=== PATIENT | female | born 1990 | race Caucasian/White ===

== ENCOUNTER 2017-03-18 02:05 | Emergency (ER) | payer OTHER ==
[2017-03-18] MEDS ORDERED: SODIUM CHLORIDE 0.9% 500 ML IV STA (02:41)
--- NOTE | 2017-03-18 03:16 | ED ---
Arrhythmia/Palpitations HPI - General Chief Complaint: Arrhythmia/Palpitations Stated Complaint: Palpitations Time Seen by Provider: 03/18/17 02:22 Source: patient Mode of arrival: ambulatory Limitations: no limitations - History of Present Illness Initial Comments: This patient is a 26-year-old woman who presents to be evaluated for which she describes as palpitations. She states it feels like her heart will have an extra beat and it will be associated with a squeezing feeling in her chest that comes and goes over about a second. Patient states that this came on nearly 2 hours ago now, while she was at a friend's house. She states that when she went home and called her mother she was advised to be seen in the emergency department. Patient is not having any other symptoms, including no dyspnea, diaphoresis, nausea or vomiting, lightheadedness or syncope. The patient had a similar episode approximately one month ago and was seen at [facility]. She states that she was discharged to follow-up but her insurance changed so she was not able to keep the follow-up appointment. MD Complaint: palpitations Onset/Timin -: hour(s) Context: occurred during rest Associated Symptoms: anxiety - Related Data Home Medications Medication Instructions Recorded Confirmed No Known Home Medications [No 03/18/17 03/18/17 Known Home Medications] Allergies Allergy/AdvReac Type Severity Reaction Status Date / Time Penicillins Allergy Unknown Verified 03/18/17 02:19 Childhood Review of Systems ROS Statement: Those systems with pertinent positive or pertinent negative responses have been documented in the HPI. ROS Other: All systems not noted in ROS Statement are negative. Constitutional: Denies: fever, chills, weakness Eyes: Denies: vision change Respiratory: Denies: cough, dyspnea Cardiovascular: Reports: palpitations. Denies: chest pain, dyspnea on exertion , orthopnea, syncope Gastrointestinal: Denies: abdominal pain, vomiting, diarrhea Musculoskeletal: Denies: back pain Skin: Denies: rash Neurological: Denies: headache, weakness, numbness Psychiatric: Reports: anxiety Past Medical History Additional Past Medical History / Comment(s): hx of heart block, unsure of which History of Any Multi-Drug Resistant Organisms: None Reported Additional Past Surgical History / Comment(s): wisdom teeth 2007 Past Psychological History: Anxiety Smoking Status: Current every day smoker Past Alcohol Use History: Occasional Past Drug Use History: None Reported General Exam Limitations: no limitations General appearance: alert, in no apparent distress Head exam: Present: atraumatic, normocephalic Eye exam: Present: normal appearance. Absent: scleral icterus, conjunctival injection ENT exam: Present: normal oropharynx Neck exam: Present: normal inspection, full ROM Respiratory exam: Present: normal lung sounds bilaterally. Absent: respiratory distress, wheezes, rales, rhonchi, stridor Cardiovascular Exam: Present: regular rate, normal rhythm, normal heart sounds. Absent: systolic murmur, diastolic murmur, rubs, gallop GI/Abdominal exam: Present: soft. Absent: tenderness, guarding, rebound, mass Extremities exam: Present: normal inspection, normal capillary refill. Absent: pedal edema, calf tenderness Neurological exam: Present: alert Psychiatric exam: Present: anxious Skin exam: Present: warm, dry, intact, normal color. Absent: rash Course Vital Signs 03/18/17 03/18/17 02:13 04:02 Temperature 97.7 F 97.5 F L Pulse Rate 80 66 Respiratory 16 18 Rate Blood Pressure 127/75 107/69 O2 Sat by Pulse 99 97 Oximetry Medical Decision Making - Lab Data Result diagrams: 03/18/17 03:00 03/18/17 03:00 Lab Results 03/18/17 03/18/17 03/18/17 Range/Units 03:00 03:00 03:00 WBC 8.0 (3.8-10.6) k/uL RBC 4.47 (3.80-5.40) m/uL Hgb 14.2 (11.4-16.0) gm/dL Hct 40.7 (34.0-46.0) % MCV 91.0 (80.0-100.0) fL MCH 31.7 (25.0-35.0) pg MCHC 34.9 (31.0-37.0) g/dL RDW 12.7 (11.5-15.5) % Plt Count 239 (150-450) k/uL Neutrophils % 59 % Lymphocytes % 30 % Monocytes % 6 % Eosinophils % 3 % Basophils % 1 % Neutrophils # 4.7 (1.3-7.7) k/uL Lymphocytes # 2.4 (1.0-4.8) k/uL Monocytes # 0.5 (0-1.0) k/uL Eosinophils # 0.2 (0-0.7) k/uL Basophils # 0.1 (0-0.2) k/uL PT 10.5 (9.0-12.0) sec INR 1.0 (<1.1) APTT 28.1 (22.0-30.0) sec D-Dimer 0.19 (<0.60) mg/L FEU Sodium 140 (137-145) mmol/L Potassium 3.8 (3.5-5.1) mmol/L Chloride 104 (98-107) mmol/L Carbon Dioxide 25 (22-30) mmol/L Anion Gap 11 mmol/L BUN 9 (7-17) mg/dL Creatinine 0.70 (0.52-1.04) mg/dL Est GFR (MDRD) Af Amer >60 (>60 ml/min/1.73 sqM) Est GFR (MDRD) Non-Af >60 (>60 ml/min/1.73 sqM) Glucose 95 (74-99) mg/dL Calcium 9.8 (8.4-10.2) mg/dL Magnesium 1.8 (1.6-2.3) mg/dL Total Bilirubin 0.4 (0.2-1.3) mg/dL AST 16 (14-36) U/L ALT 25 (9-52) U/L Alkaline Phosphatase 61 (38-126) U/L Troponin I (0.000-0.034) ng/mL Total Protein 7.5 (6.3-8.2) g/dL Albumin 4.4 (3.5-5.0) g/dL 03/18/17 Range/Units 03:00 WBC (3.8-10.6) k/uL RBC (3.80-5.40) m/uL Hgb (11.4-16.0) gm/dL Hct (34.0-46.0) % MCV (80.0-100.0) fL MCH (25.0-35.0) pg MCHC (31.0-37.0) g/dL RDW (11.5-15.5) % Plt Count (150-450) k/uL Neutrophils % % Lymphocytes % % Monocytes % % Eosinophils % % Basophils % % Neutrophils # (1.3-7.7) k/uL Lymphocytes # (1.0-4.8) k/uL Monocytes # (0-1.0) k/uL Eosinophils # (0-0.7) k/uL Basophils # (0-0.2) k/uL PT (9.0-12.0) sec INR (<1.1) APTT (22.0-30.0) sec D-Dimer (<0.60) mg/L FEU Sodium (137-145) mmol/L Potassium (3.5-5.1) mmol/L Chloride (98-107) mmol/L Carbon Dioxide (22-30) mmol/L Anion Gap mmol/L BUN (7-17) mg/dL Creatinine (0.52-1.04) mg/dL Est GFR (MDRD) Af Amer (>60 ml/min/1.73 sqM) Est GFR (MDRD) Non-Af (>60 ml/min/1.73 sqM) Glucose (74-99) mg/dL Calcium (8.4-10.2) mg/dL Magnesium (1.6-2.3) mg/dL Total Bilirubin (0.2-1.3) mg/dL AST (14-36) U/L ALT (9-52) U/L Alkaline Phosphatase (38-126) U/L Troponin I <0.012 (0.000-0.034) ng/mL Total Protein (6.3-8.2) g/dL Albumin (3.5-5.0) g/dL Disposition Clinical Impression: Palpitations Disposition: HOME SELF-CARE Condition: Good Instructions: Palpitations (ED) Referrals: None,Stated [Primary Care Provider] - 1-2 days Alex Monroy DO [STAFF PHYSICIAN] - 1-2 days Romulo Dow MD [STAFF PHYSICIAN] - 1-2 days
[2017-03-18 03:29] LABS: Basophils # (A) 0.1 k/uL (0-0.2); Basophils % (A) 1 %; CH 32.1; CHCM 35.4; Eosinophils # (A) 0.2 k/uL (0-0.7); Eosinophils % (A) 3 %; HCT 40.7 % (34.0-46.0); HDW 2.45; HGB 14.2 gm/dL (11.4-16.0); Luc # (Auto) 0.14; Luc % (Auto) 2; Lymphocytes # (A) 2.4 k/uL (1.0-4.8); Lymphocytes % (A) 30 %; MCH 31.7 pg (25.0-35.0); MCHC 34.9 g/dL (31.0-37.0); Mean Platelet Volume 7.5; Monocytes # (A) 0.5 k/uL (0-1.0); Monocytes % (A) 6 %; Neutrophils # (A) 4.7 k/uL (1.3-7.7); Neutrophils % (A) 59 %; RBC 4.47 m/uL (3.80-5.40); RDW 12.7 % (11.5-15.5); WBC (Perox) 7.65
[2017-03-18 03:45] LABS: Partial Thromboplastin Time 28.1 sec (22.0-30.0); Prothrombin Time 10.5 sec (9.0-12.0)
[2017-03-18 03:47] LABS: ALT 25 U/L (9-52); AST 16 U/L (14-36); Alkaline Phosphatase 61 U/L (38-126); Anion Gap 11 mmol/L; Blood Urea Nitrogen 9 mg/dL (7-17); Calcium 9.8 mg/dL (8.4-10.2); Carbon Dioxide 25 mmol/L (22-30); Chloride 104 mmol/L (98-107); Glucose 95 mg/dL (74-99); Magnesium 1.8 mg/dL (1.6-2.3); Non-African American GFR(MDRD) >60 (>60 ml/min/1.73 sqM); Potassium 3.8 mmol/L (3.5-5.1); Sodium 140 mmol/L (137-145); Total Bilirubin 0.4 mg/dL (0.2-1.3); Total Protein 7.5 g/dL (6.3-8.2)
--- NOTE | 2017-03-18 03:49 | XR ---
EXAM: XR Chest, 1 View CLINICAL HISTORY: Reason: dysrhythmia TECHNIQUE: Frontal view of the chest. COMPARISON: No relevant prior studies available. FINDINGS: Lungs: Unremarkable. No consolidation. Pleural space: No pleural effusion. No pneumothorax. Heart: Unremarkable. No cardiomegaly. Mediastinum: Unremarkable. IMPRESSION: No acute cardiopulmonary disease.
[2017-03-18 04:03] VITALS: BP 107/69; PULSE 66; RESP 18; TEMP 97.5
== END 2017-03-18 04:37 | disposition home or self-care (01) ==
LOC: EC 02:05
DX: R00.2 Palpitations (principal); F41.9 Anxiety disorder, unspecified; F17.200 Nicotine dependence, unspecified, uncomplicated; Z88.0 Allergy status to penicillin; Z86.79 Personal history of other diseases of the circulatory system
CPT/HCPCS: 36415; 71010; 80053; 83735; 84484; 85025; 85379; 85610; 85730; 93005; 96360; 96361; 99285

== ENCOUNTER → 2020-12-26 | Outpatient (CLI) | payer BC ==
--- NOTE | 2020-12-27 08:57 | US ---
EXAMINATION TYPE: US thyroid st tissue head/neck DATE OF EXAM: 12/26/2020 COMPARISON: NONE CLINICAL HISTORY: E07.89 Thyroid fullness. Pt states physician felt neck was enlarged GLAND SIZE: Right Lobe: 5.5 x 1.4 x 1.7 cm Overall Parenchyma: homogenous Left Lobe: 4.8 x 1.0 x 1.4 cm Overall Parenchyma: homogeneous Isthmus Thickness: 0.4 cm Bilateral neck scanned, no evidence of lymphadenopathy. Bilateral thyroid appeared wnl. IMPRESSION: Normal thyroid ultrasound
== END | disposition home or self-care (01) ==
LOC: RADUSWWP 16:08
PROVIDERS: ATTEND Obstetrics & Gynecology Obstetrics
DX: E07.89 Other specified disorders of thyroid (principal)
CPT/HCPCS: 76536

== ENCOUNTER → 2022-07-17 | Outpatient (CLI) | payer BC ==
[2022-07-17 10:11] VITALS: BP 118/79; PULSE 93; RESP 16; TEMP 98.3
--- NOTE | 2022-07-17 10:54 | P.HPOB ---
History of Present Illness H&P Date: 07/17/22 Chief Complaint: The patient is here for her routine gynecologic exam. This is a 32-year-old G0 with an LMP of 04/30/22. The patient is here to establish with this office. She has been on semi-continuous oral contraception for almost 1 year. She states she is doing well with this. She has menstrual period about every 3 months using this method. She is without gynecologic complaints. She is contemplating attempting in approximately 2 years. It has been about 1 year since her last pelvic exam. Review of Systems The patient's weight has been stable over the last year. Her weight can fluctuate by about 10-15 pounds since she has been trying to lose weight. She denies respiratory, cardiac, or G.I. problems. 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 She has completed her Gardasil vaccination series. History of Any Multi-Drug Resistant Organisms: None Reported Additional Past Surgical History / Comment(s): wisdom teeth 2007. Root canal. Past Psychological History: Anxiety (She denies any current depression.) Past Alcohol Use History: Occasional (5 per week) Additional Past Alcohol Use History / Comment(s): Quit smoking in 2018. Past Drug Use History: None Reported Additional History: She has been with her boyfriend since 2015 and lives with him. She works in sales for [employer]. - Past Family History Mother Additional Family Medical History / Comment(s): Anxiety. Maternal grandfather had CVA and DC. Maternal grandmother had brain cancer. Father Family Medical History: Hyperlipidemia, Hypertension Additional Family Medical History / Comment(s): Paternal grandfather had diabetes and paternal grandmother had renal failure. Medications and Allergies Home Medications Medication Instructions Recorded Confirmed Type ALPRAZolam [Xanax] 0.5 mg PO DAILY PRN 07/17/22 07/17/22 History Dextroamphetamine/Amphetamine 5 mg PO QAM 07/17/22 07/17/22 History [Adderall Xr] Levonorgestrel/Ethin.estradiol 1 tab PO DAILY 07/17/22 07/17/22 History [Levonorgestrel/Ethin.estradiol Triphasic] Allergies Allergy/AdvReac Type Severity Reaction Status Date / Time Penicillins Allergy Unknown Verified 07/17/22 10:07 Childhood Exam Vital Signs Temp Pulse Resp BP Pulse Ox 07/17/22 10:07 98.3 F 93 16 118/79 100 Intake and Output 07/16/22 07/17/22 07/17/22 22:59 06:59 14:59 Other: Weight 73.482 kg Height 5 feet 2-1/2 inches, weight 162 pounds, BMI 29.2. This is a well-developed well-nourished white female who is alert and oriented times 3 in no acute distress. HEENT: Within normal limits. NECK: Supple without mass or thyromegaly. CHEST AND LUNGS: Clear to auscultation. HEART: Regular rate and rhythm. BREASTS: Are without mass or discharge. AXILLARY EXAM: Negative for adenopathy. BACK: Negative for CVA tenderness. ABDOMEN: Soft, nontender, without palpable masses. PELVIC EXAM: Normal external genitalia. Cervix and vagina appear normal. There is no unusual discharge. There is no evidence of prolapse. The uterus is midposition, nongravid size and nontender. There are no palpable adnexal masses or tenderness. RECTAL EXAM: negative for mass or tenderness. EXTREMITIES: Nontender. IMPRESSION: 1. 32-year-old female on oral contraception, with normal gynecologic exam. PLAN: 1. Pap smear cotest was performed. 2. Self breast awareness was discussed with the patient. We have also discussed symptoms associated with inflammatory breast cancer. 3. We have had a long discussion regarding for contraception. We discussed possible side effects and risks. We have discussed the possible increased risk for blood clots including DVT, PE, DC, and CVA. We have discussed how smoking increases those risks. She would like to continue oral contraception. The electronic prescription will be sent to [facility] pharmacy on and . 4. Preconception planning was discussed with the patient. I have recommended that she take a multivitamin with folic acid on a regular basis, especially when she discontinues the control pills. 5. Weight control was discussed with the patient. She states she has been trying to lose weight. I have stressed the importance of good nutrition and regular exercise as well as adequate fiber and regular meals. 6. She has had her Covid vaccination series. 7. She was advised to return in one year for her annual well woman exam.
--- NOTE | 2022-07-24 18:03 | P.PN ---
Progress Note - Text Progress Note Date: 07/24/22 OUTPATIENT FOLLOW-UP NOTE TEST(S)/RESULTS: Test results from 07/17/2022 include negative Pap smear and negative high-risk HPV testing. METHOD OF NOTIFICATION: The patient was notified by phone. PATIENT COMMENTS: She is happy to hear these results. DIAGNOSIS: Negative Pap smear cotest. DISCUSSION: [] PLAN: She was advised to return in one year for her annual well woman exam.
== END | disposition home or self-care (01) ==
LOC: WWCWWP 09:50
PROVIDERS: ATTEND Obstetrics & Gynecology
DX: Z53.9 Procedure and treatment not carried out, unspecified reason (principal)

== ENCOUNTER → 2022-11-13 | Outpatient (CLI) | payer BC | END | disposition home or self-care (01) | LOC: LABWHC1 15:52 | PROVIDERS: ATTEND Family Medicine | DX: B89 Unspecified parasitic disease (principal) | CPT/HCPCS: 87502 ==

== ENCOUNTER → 2023-11-26 | Outpatient (CLI) | payer BC ==
[2023-11-26 14:12] VITALS: BP 141/83; PULSE 104; RESP 18; TEMP 98.3
--- NOTE | 2023-11-26 14:40 | P.HPOB ---
History of Present Illness H&P Date: 11/26/23 Chief Complaint: The patient is here for her routine gynecologic exam. This is a 33-year-old G0 with an LMP of 10/12/2023. The patient continues to use semi-continuous oral contraception and has been on this since 2020. She thinks she may be interested in getting in about 2 years. She denies any problems with oral contraception. She is without gynecologic complaints. Review of Systems The patient's weight has been stable over the last year. She denies respiratory, cardiac, or G.I. problems. 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 She has completed her Gardasil vaccination series. History of Any Multi-Drug Resistant Organisms: None Reported Additional Past Surgical History / Comment(s): wisdom teeth 2007. Root canal. Past Psychological History: Anxiety Smoking Status: Light tobacco smoker (Rare use, only during very stressful times.), Second hand smoke exposure (Boyfriend smokes.) Past Alcohol Use History: Occasional (2-3 drinks per week.) Additional Past Alcohol Use History / Comment(s): Quit smoking in 2018. Past Drug Use History: None Reported Additional History: She has been with her boyfriend since 2014 and lives with him. 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 - Past Family History Mother Additional Family Medical History / Comment(s): Anxiety. Maternal grandfather had CVA and NM. Maternal grandmother had brain cancer. Father Family Medical History: Hyperlipidemia, Hypertension Additional Family Medical History / Comment(s): Paternal grandfather had diabet es and paternal grandmother had renal failure. Medications and Allergies Home Medications Medication Instructions Recorded Confirmed Type ALPRAZolam [Xanax] 0.5 mg PO DAILY PRN 07/17/22 11/26/23 History Dextroamphetamine/Amphetamine 5 mg PO QAM 07/17/22 11/26/23 History [Adderall Xr] l-Norgest/E.estradiol-E.estrad 1 tab PO DAILY #84 tab 07/17/22 11/26/23 Rx [Loseasonique Tablet] Allergies Allergy/AdvReac Type Severity Reaction Status Date / Time Penicillins Allergy Unknown Verified 11/26/23 14:05 Childhood Exam Vital Signs Temp Pulse Resp BP Pulse Ox 11/26/23 14:06 98.3 F 104 H 18 141/83 98 Intake and Output 11/25/23 11/26/23 11/26/23 22:59 06:59 14:59 Other: Weight 73.936 kg Height 5 feet 2 inches, weight 163 pounds, BMI 29.8. Repeat blood pressure in the right arm was 108/58. This is a well-developed well-nourished white female who is alert and oriented times 3 in no acute distress. HEENT: Within normal limits. NECK: Supple without mass or thyromegaly. CHEST AND LUNGS: Clear to auscultation. HEART: Regular rate and rhythm. BREASTS: Are without mass or discharge. AXILLARY EXAM: Negative for adenopathy. BACK: Negative for CVA tenderness. ABDOMEN: Soft, nontender, without palpable masses. PELVIC EXAM: Normal external genitalia. Cervix and vagina appear normal. There is no unusual discharge. There is no evidence of prolapse. The uterus is midposition, nongravid size and nontender. There are no palpable adnexal masses or tenderness. RECTAL EXAM: Deferred. EXTREMITIES: Nontender. IMPRESSION: 1. 33-year-old female doing well on some a continuous oral contraception, contemplating attending and about 2 years. 2. Normal gynecologic exam. PLAN: 1. Pap smear was deferred since she had a negative Pap smear cotest on 07/17/2022. 2. Self breast awareness was discussed with the patient. We have also discussed symptoms associated with inflammatory breast cancer. 3. Preconception planning was discussed. I recommended taking a daily multivitamin with folic acid. I also recommended keeping a menstrual calendar. 4. I recommended checking her own blood pressure intermittently. She was instructed to call if it is consistently high. 5. We have discussed the gradually increasing risk for chromosomal defects such as Down syndrome with increasing maternal age. 6. The prescription for her oral contraception for the generic form of [place] sonique will be sent electronically to [facility] pharmacy on and [place]. 7. She was advised to return in one year for her annual well woman exam.
== END ==
LOC: WWCWWP 13:54
PROVIDERS: ATTEND Obstetrics & Gynecology
DX: F41.9 Anxiety disorder, unspecified (principal); F17.200 Nicotine dependence, unspecified, uncomplicated; Z79.3 Long term (current) use of hormonal contraceptives; Z88.0 Allergy status to penicillin

== ENCOUNTER → 2024-01-21 | Outpatient (CLI) | payer BC ==
[2024-01-22 01:19] LABS: Alternaria alternata IgE <0.10 kU/L; Aspergillus fumagatus IgE <0.10 kU/L; Birch IgE <0.10 kU/L; Cat Epith & Dander IgE <0.10 kU/L; Cladosporian herbarum IgE <0.10 kU/L; Cockroach IgE <0.10 kU/L; Dermato. farinae IgE <0.10 kU/L; Dog Dander IgE <0.10 kU/L; Maple (Box Elder) IgE <0.10 kU/L; Oak IgE <0.10 kU/L; Ragweed,Common IgE <0.10 kU/L
[2024-01-22 13:11] LABS: Aureo. pullulans IgE <0.10 kU/L (<0.10); Aureo. pullulans IgE Class CLASS 0; Johnson Grass IgE Class CLASS 0; Latex IgE Class CLASS 0; Rhizopus nigricans IgE <0.10 kU/L (<0.10); Rhizopus nigricans IgE Class CLASS 0; Timothy Grass IgE <0.10 kU/L (<0.10); Timothy Grass IgE Class CLASS 0
[2024-01-22 13:12] LABS: Epicoccum purpurascens Class CLASS 0; Epicoccum purpurascens IgE <0.10 kU/L (<0.10); Mucor racemosus IgE <0.10 kU/L (<0.10); Mucor racemosus IgE Class CLASS 0
[2024-01-22 13:13] LABS: Candida albicans IgE Class CLASS 0; Cottonwood IgE <0.10 kU/L (<0.10); S.rostrata/Helminth Class CLASS 0; S.rostrata/Helminth IgE <0.10 kU/L (<0.10); Sycamore(Mpl.Lf) IgE <0.10 kU/L (<0.10); Sycamore(Mpl.Lf) IgE Class CLASS 0
[2024-01-22 13:14] LABS: Walnut Tree IgE <0.10 kU/L (<0.10); Walnut Tree IgE Class CLASS 0; White Ash IgE Class CLASS 0
[2024-01-22 13:15] LABS: Com. Pigweed IgE <0.10 kU/L (<0.10); Com. Pigweed IgE Class CLASS 0; English Plantain IgE Class CLASS 0; Lamb's Quarter IgE <0.10 kU/L (<0.10); Lamb's Quarter IgE Class CLASS 0
== END | disposition home or self-care (01) ==
LOC: LABWHC1 14:11
PROVIDERS: ATTEND Otolaryngology
DX: L50.0 Allergic urticaria (principal)
CPT/HCPCS: 36415; 82785; 86001; 86003

== ENCOUNTER 2025-05-05 15:20 | Outpatient (CLI) | payer OTHER ==
[2025-05-05 16:05] LABS: Appearance,Urine Clear (Clear); Bilirubin,Urine Negative (Negative); Blood,Urine Negative (Negative); Color,Urine Colorless; Glucose,Urine (UA) Negative (Negative); Ketones,Urine Negative (Negative); Leukocyte Esterase,Urine Negative (Negative); Nitrite,Urine Negative (Negative); PH, Urine 6.5 (5.0-8.0); Protein,Urine Negative (Negative); Urobilinogen,Urine <2.0 mg/dL (<2.0)
[2025-05-05 17:16] LABS: Basophils # (A) 0.04 10*3/uL (0.00-0.10); Basophils % (A) 0.4 %; Eosinophils # (A) 0.11 10*3/uL (0.04-0.35); HCT 35.4 % (37.2-46.3); HGB 12.4 g/dL (12.0-15.0); Lymphocytes # (A) 1.48 10*3/uL (0.90-5.00); Lymphocytes % (A) 13.6 %; MCH 32.3 pg (27.0-32.0); MCV 92.2 fL (80.0-97.0); Mean Platelet Volume 11.7 fL (9.5-12.2); Monocytes # (A) 0.81 10*3/uL (0.20-1.00); Monocytes % (A) 7.4 %; Neutrophils # (A) 8.43 10*3/uL (1.80-7.70); Neutrophils % (A) 77.1 %; Platelet Count 233 10*3/uL (140-440); RBC 3.84 10*6/uL (4.10-5.20); WBC 10.92 10*3/uL (4.50-10.00)
[2025-05-05] MEDS: ACETAMINOPHEN IV (For NPO) 1,000 MG in EMPTY BAG 1 BAG IVPB STA (17:18)
[2025-05-05] MEDS: LACTATED RINGERS 1,000 ML IV ONE (17:18)
[2025-05-05] MEDS: LACTATED RINGERS 1,000 ML IV SCH (18:25)
--- NOTE | 2025-05-05 20:14 | US ---
EXAMINATION TYPE: US kidneys/renal and bladder DATE OF EXAM: 05/05/2025 COMPARISON: NONE CLINICAL INDICATION: Female, 34 years old with history of severe left side flank pain; patient states left flank pain since this morning TECHNIQUE: Grayscale imaging of the bilateral kidneys and urinary bladder: FINDINGS: EXAM MEASUREMENTS: Right Kidney: 11.1 x 4.5 x 5.0 cm Left Kidney: 13.0 x 6.3 x 6.7 cm Right Kidney: wnl Left Kidney: enlarged. otherwise appears wnl Bladder: wnl Bilateral Jets seen: yes There is no evidence for hydronephrosis at this point in time. No nephrolithiasis is seen. No kanchan s are identified. The urinary bladder is anechoic. Fetus is noted but not examined by ultrasound during this examination. IMPRESSION: Left kidney is larger than right. No hydronephrosis or hydroureter is evident. Follow up exams can be performed as clinically indicated. [facility], , 05/05/2025 8:12 PM
[2025-05-05 21:10] VITALS: BP 112/70; PULSE 70; RESP 16; TEMP 96.6
--- NOTE | 2025-07-02 09:35 | P.MSEPDOC ---
Presenting Problems - Arrival Data Date of Arrival on Unit: 05/05/25 Time of Arrival on Unit: 15:20 Mode of Transport: Ambulatory - Complaint OB-Reason for Admission/Chief Complaint: Other Comment: Left side Flank Pain Medical History - Information : 1 Para: 0 Term: 0 : 0 Abortions: Spontaneous or Elective: 0 Number of Living Children: 0 - Gestational Age Gestational Age by BRYNN (wks/days): 20 Weeks and 6 Days Review of Systems - Review of Systems Constitutional: No problems Breast: No problems ENT: No problems Cardiovascular: No problems Respiratory: No problems Gastrointestinal: No problems Genitourinary: No problems Musculoskeletal: No problems Neurological: No problems Skin: No problems Vital Signs - Temperature Temperature: 96.6 F Temperature Source: Temporal Artery Scan - Pulse Pulse Oximetery Pulse Rate: 70 Pulse Assessment Method: Pulse Oximetry - Respirations Respiratory Rate: 16 Oxygen Delivery Method: Room Air O2 Sat by Pulse Oximetry: 100 - Blood Pressure Right Arm Blood Pressure: 112/70 Blood Pressure Mean: 84 Blood Pressure Source: Automatic Cuff Physician Notification - Physician Notified Physician Notified Date: 05/05/25 Physician Notified Time: 15:36 Physician: Lizzy Cardozo New Order Received: Yes (Bolus dose of Lactated Ringers, IV Ofirmev, and urinalysis.) Maternal Triage Index - Stat/Priority 1 Stat Priority 1: No - Urgent/Priority 2 Urgent Priority 2: No - Prompt/Priority 3 Prompt Priority 3: No - Non-Urgent/Priority 4 Non-Urgent Priority 4: Yes Criteria Met for Priority 4: Patient came in to triage with complaints of left side flank pain, and lower left abdominal pain. Disposition - Disposition OB Disposition: Discharge to home Discharge Date: 05/05/25 Discharge Time: 20:50 I agree with the RN Medical Screening Exam: Yes Case reviewed; plan agreed upon as documented in EMR&OBIX.: Yes Diagnosis: RELATED CONDITIONS, UNSPECIFIED, SECOND TRIMESTER
== END 2025-05-05 20:50 | disposition home or self-care (01) ==
LOC: FBPOP 15:20
PROVIDERS: ATTEND Obstetrics & Gynecology Obstetrics
DX: O26.892 Other specified pregnancy related conditions, second trimester (principal); F17.220 Nicotine dependence, chewing tobacco, uncomplicated; Z3A.20 20 weeks gestation of pregnancy; Z88.0 Allergy status to penicillin; Z91.011 Allergy to milk products; Z91.014 Allergy to mammalian meats
CPT/HCPCS: 99214; 96361; 96365; 85025; 81003; 76770; J0131; 96366; 99213

== ENCOUNTER 2025-05-06 07:10 | Observation (INO) | payer OTHER ==
[2025-05-06] MEDS ORDERED: MORPHINE SULFATE 4 MG/ML SYRINGE IVP PRN (07:38)
[2025-05-06] MEDS: SODIUM CHLORIDE 0.9% 1,000 ML IV STA ×2 (08:09→10:55)
--- NOTE | 2025-05-06 08:12 | ED ---
General Adult HPI - General Chief complaint: Abdominal Pain Stated complaint: 21 wks preg- back pain, abd pain, vomiting Time Seen by Provider: 05/06/25 07:27 Source: patient Mode of arrival: ambulatory Limitations: no limitations - History of Present Illness Initial comments: Dictation was produced using [employer]iga[employer] dictation software. please excuse any gramma tical, word or spelling errors. Chief Complaint: 34-year-old female with left leg pain History of Present Illness: Patient 34-year-old female with no significant past medical history she is allegedly 21 weeks . Has been having pain for the last 48 hours. States that yesterday she came to the ER and was sent to labor and delivery where she was initially seen. At that time she was evaluated for possible kidney stone. She did not have any blood in her urine and her ultrasound showed no obvious signs of kidney stone. She was discharged home told that it was related musculoskeletal pain. Since yesterday patient has been having persistent pain. Radiates to the right groin. Has no history of kidney stones. States that some of associate with nausea and vomiting. The ROS documented in this emergency department record has been reviewed and confirmed by me. Those systems with pertinent positive or negative responses have been documented in the HPI. All other systems are other negative and/or noncontributory. - Related Data Home Medications Medication Instructions Recorded Confirmed ALPRAZolam [Xanax] 0.5 mg PO DAILY PRN 07/17/22 05/05/25 Dextroamphetamine/Amphetamine 5 mg PO QAM 07/17/22 05/05/25 [Adderall Xr] Aspirin [Coin Aspirin EC] 1 tab PO DAILY 05/05/25 05/05/25 Vit No.179/Iron/Folic 1 tab PO DAILY 05/05/25 05/05/25 [ Tablet] Previous Rx's Medication Instructions Recorded l-Norgest/E.estradiol-E.estrad 1 tab PO DAILY #84 tab 07/17/22 [Loseasonique Tablet] Allergies Allergy/AdvReac Type Severity Reaction Status Date / Time Penicillins Allergy Rash/Hives Verified 05/06/25 07:25 Review of Systems ROS Statement: Those systems with pertinent positive or pertinent negative responses have been documented in the HPI. ROS Other: All systems not noted in ROS Statement are negative. Past Medical History Past Medical History: No Reported History Additional Past Medical History / Comment(s): PAST PROPERTY VALUER HISTORY: She has no history of STDs. She has completed her Gardasil vaccination series. History of Any Multi-Drug Resistant Organisms: None Reported Additional Past Surgical History / Comment(s): wisdom teeth 2007. Root canal. Past Psychological History: Anxiety Smoking Status: Never smoker Past Alcohol Use History: None Reported Past Drug Use History: None Reported - Past Family History Mother Additional Family Medical History / Comment(s): Anxiety. Maternal grandfather had CVA and [place]. Maternal grandmother had brain cancer. Father Family Medical History: Hyperlipidemia, Hypertension Additional Family Medical History / Comment(s): Paternal grandfather had diabetes and paternal grandmother had renal failure. General Exam - General Exam Comments Initial Comments: PHYSICAL EXAM: General Impression: Alert and oriented x3, not in acute distress HEENT: Normocephalic atraumatic, extra-ocular movements intact, pupils equal and reactive to light bilaterally, mucous membranes moist. Cardiovascular: Heart regular rate and rhythm Chest: Able to complete full sentences, no retractions, no tachypnea Abdomen: abdomen soft, non-tender, non-distended, no organomegaly Musculoskeletal: Pulses present and equal in all extremities, no peripheral edema Motor: no focal deficits noted Neurological: CN II-XII grossly intact, no focal motor or sensory deficits noted Skin: Intact with no visualized rashes Psych: Normal affect and mood Limitations: no limitations Course Vital Signs 05/06/25 05/06/25 07:23 09:56 Temperature 98 F Pulse Rate 75 78 Respiratory 18 18 Rate Blood Pressure 112/75 127/80 O2 Sat by Pulse 100 100 Oximetry Medical Decision Making - Medical Decision Making Was pt. sent in by a medical professional or institution (, PA, MOLDING MACHINE OPERATOR HELPER, urgent care, hospital, or retirement...) When possible be specific @ -No Did you speak to anyone other than the patient for history (EMS, parent, family, police, friend...)? What history was obtained from this source @ -No Did you review nursing and triage notes (agree or disagree)? Why? @ -I reviewed and agree with nursing and triage notes Were old charts reviewed (outside hosp., previous admission, EMS record, old EKG, old radiological studies, urgent care reports/EKG's, retirement records)? Report findings @ -No old charts were reviewed Differential Diagnosis (chest pain, altered mental status, abdominal pain women, abdominal pain men, vaginal bleeding, musculoskeletal, weakness, fever, dyspnea, syncope, headache, dizziness, GI bleed, back pain, seizure, CVA, palpatations, mental health)? @ -Differential Abdominal Pain Women: Appendicitis, Cholecystitis, diverticulosis, ischemic bowel, pancreatitis, hepatitis, UTI, gastroenteritis, AAA, incarcerated hernia, bowel obstruction, constipation, inflammatory bowel, hepatitis, peptic ulcer disease, splenic infarction, perforated viscus, vulvitis, ovarian torsion, PID, kidney stone, placenta abruption, this is not meant to be an all-inclusive list EKG interpreted by me (3pts min.). @ -None done X-rays interpreted by me (1pt min.). @ -None done CT interpreted by me (1pt min.). @ -None done U/S interpreted by me (1pt. min.). @ -Ultrasound kidneys ureter bladder and OB ultrasound shows no acute processes What testing was considered but not performed or refused? (CT, X-rays, U/S, labs)? Why? @ -None What meds were considered but not given or refused? Why? @ -None Was smoking cessation discussed for >3mins.? @ -No Were there social determinants of health that impacted care today? How? (Homelessness, low income, unemployed, alcoholism, drug addiction, transportation, low edu. Level, literacy, decrease access to med. care, fpc, rehab)? @ -No Was there de-escalation of care discussed even if they declined (Discuss DNR or withdrawal of care, Hospice)? DNR status @ -No What co-morbidities impacted this encounter? (DM, HTN, Smoking, COPD, CAD, Cancer, CVA, ARF, Chemo, Hep., AIDS, mental health diagnosis, sleep apnea, m orbid obesity)? @ -None Was patient admitted / discharged? Hospital course, mention meds given and route, prescriptions, significant lab abnormalities, going to OR and other pertinent info. @ -34-year-old female presents emergency department clinical presentation consistent with nephrolithiasis. Vital signs are stable. Patient distress at the bedside has significant amount of blood in the urine. Ultrasound shows hydronephrosis suspect that patient has small nonobstructing kidney stone. Pat ient having intractable pain. Patient refusing morphine due to and concern of complications. Patient given IV fluids. Case discussed with urologist and VESSEL ENGINEER who will consult on patient. Case discussed with hospitalist for admission Did you discuss the management of the patient with other professionals (professionals i.e. , PA, MOLDING MACHINE OPERATOR HELPER, lab, RT, psych nurse, social services technician, medical record technician, teacher, signals officer, high risk case manager)? Give summary @ -See above Was critical care preformed (if so, how long)? @ -No Undiagnosed new problem with uncertain prognosis? @ -No Drug Therapy requiring intensive monitoring for toxicity (Heparin, Nitro, Insulin, Cardizem)? @ -No Were any procedures done? @ -No Diagnosis/symptom? Acute, or Chronic, or Acute on Chronic? Uncomplicated (without systemic symptoms) or Complicated (systemic symptoms)? @ -Intractable kidney stone pain Side effects of treatment? @ -No Exacerbation, Progression, or Severe Exacerbation? @ -No Poses a threat to life or bodily function? How? (Chest pain, [place], [place], pneumonia, PE, COPD, DKA, ARF, appy, cholecystitis, CVA, Diverticulitis, Homicidal, Suicidal, threat to staff... and all critical care pts) @ -yes - Lab Data Result diagrams: 05/06/25 08:02 05/06/25 08:02 Lab Results 05/06/25 05/06/25 05/06/25 Range/Units 07:59 08:02 08:02 WBC 11.79 H (4.50-10.00) 10*3/uL RBC 3.92 L (4.10-5.20) 10*6/uL Hgb 12.4 (12.0-15.0) g/dL Hct 35.3 L (37.2-46.3) % MCV 90.1 (80.0-97.0) fL MCH 31.6 (27.0-32.0) pg MCHC 35.1 (32.0-37.0) g/dL Plt Count 222 (140-440) 10*3/uL MPV 10.4 (9.5-12.2) fL Immature Gran % (Auto) 0.5 % Neutrophils % 86.1 % Lymphocytes % 8.3 % Monocytes % 4.7 % Eosinophils % 0.1 % Basophils % 0.3 % Immature Gran # 0.06 H (0.00-0.04) 10*3/uL Neutrophils # 10.15 H (1.80-7.70) 10*3/uL Lymphocytes # 0.98 (0.90-5.00) 10*3/uL Monocytes # 0.55 (0.20-1.00) 10*3/uL Eosinophils # 0.01 L (0.04-0.35) 10*3/uL Basophils # 0.04 (0.00-0.10) 10*3/uL Sodium 135 L (137-145) mmol/L Potassium 4.0 (3.5-5.1) mmol/L Chloride 106 (98-107) mmol/L Carbon Dioxide 22 (22-30) mmol/L Anion Gap 7 mmol/L BUN 6 L (7-17) mg/dL Creatinine 0.49 L (0.52-1.04) mg/dL Est GFR (CKD-EPI)AfAm >90 (>60 ml/min/1.73 sqM) Est GFR (CKD-EPI)NonAf >90 (>60 ml/min/1.73 sqM) Glucose 99 (74-99) mg/dL Calcium 9.6 (8.4-10.2) mg/dL Total Bilirubin 0.4 (0.2-1.3) mg/dL AST 21 (14-36) U/L ALT 14 (4-34) U/L Alkaline Phosphatase 70 (38-126) U/L Total Protein 6.4 (6.3-8.2) g/dL Albumin 3.7 (3.5-5.0) g/dL Urine Color Light Yellow Urine Appearance Clear (Clear) Urine pH 6.0 (5.0-8.0) Ur Specific [place] 1.016 (1.001-1.035) Urine Protein Negative (Negative) Urine Glucose (UA) Negative (Negative) Urine Ketones Negative (Negative) Urine Blood Moderate H (Negative) Urine Nitrite Negative (Negative) Urine Bilirubin Negative (Negative) Urine Urobilinogen <2.0 (<2.0) mg/dL Ur Leukocyte Esterase Negative (Negative) Urine RBC 109 H (0-5) /hpf Urine WBC 2 (0-5) /hpf Ur Squamous Epith Cells 1 (0-4) /hpf Calcium Oxalate Crystal Few H (None) /hpf Urine Bacteria Rare H (None) /hpf Urine Mucus Rare H (None) /hpf Disposition Clinical Impression: Kidney stone Disposition: ADMITTED IP TO THIS HOSP Condition: Fair Referrals: Mayur Lynne MD [Primary Care Provider] - 1-2 days Decision Time: 10:55
[2025-05-06 08:13] LABS: Basophils # (A) 0.04 10*3/uL (0.00-0.10); Basophils % (A) 0.3 %; Eosinophils # (A) 0.01 10*3/uL (0.04-0.35); Eosinophils % (A) 0.1 %; HCT 35.3 % (37.2-46.3); HGB 12.4 g/dL (12.0-15.0); Lymphocytes # (A) 0.98 10*3/uL (0.90-5.00); Lymphocytes % (A) 8.3 %; MCH 31.6 pg (27.0-32.0); MCHC 35.1 g/dL (32.0-37.0); MCV 90.1 fL (80.0-97.0); Mean Platelet Volume 10.4 fL (9.5-12.2); Monocytes # (A) 0.55 10*3/uL (0.20-1.00); Monocytes % (A) 4.7 %; Neutrophils # (A) 10.15 10*3/uL (1.80-7.70); Neutrophils % (A) 86.1 %; Platelet Count 222 10*3/uL (140-440); RBC 3.92 10*6/uL (4.10-5.20); RDW 12.8 % (11.5-14.5); WBC 11.79 10*3/uL (4.50-10.00)
[2025-05-06 08:32] LABS: ALT 14 U/L (4-34); AST 21 U/L (14-36); African American GFR (CKD) >90 (>60 ml/min/1.73 sqM); Albumin 3.7 g/dL (3.5-5.0); Alkaline Phosphatase 70 U/L (38-126); Anion Gap 7 mmol/L; Blood Urea Nitrogen 6 mg/dL (7-17); Calcium 9.6 mg/dL (8.4-10.2); Carbon Dioxide 22 mmol/L (22-30); Chloride 106 mmol/L (98-107); Glucose 99 mg/dL (74-99); Non-African American GFR(CKD) >90 (>60 ml/min/1.73 sqM); Sodium 135 mmol/L (137-145); Total Bilirubin 0.4 mg/dL (0.2-1.3); Total Protein 6.4 g/dL (6.3-8.2)
[2025-05-06 08:39] LABS: Appearance,Urine Clear (Clear); Bacteria,Urine Rare /hpf; Bilirubin,Urine Negative (Negative); Blood,Urine Moderate (Negative); Calcium Oxalate Crystals,Urine Few /hpf; Color,Urine Light Yellow; Glucose,Urine (UA) Negative (Negative); Ketones,Urine Negative (Negative); Leukocyte Esterase,Urine Negative (Negative); Mucus,Urine Rare /hpf; Nitrite,Urine Negative (Negative); Protein,Urine Negative (Negative); RBC,Urine 109 /hpf (0-5); Specific Gravity,Urine 1.016 (1.001-1.035); Squamous Epithelial Cell,Urine 1 /hpf (0-4); Urobilinogen,Urine <2.0 mg/dL (<2.0); WBC,Urine 2 /hpf (0-5)
[2025-05-06] MEDS: ACETAMINOPHEN IV (For NPO) 1,000 MG in EMPTY BAG 1 BAG IVPB STA (08:50)
[2025-05-06] MEDS: METOCLOPRAMIDE 5 MG/ML 2 ML VIAL IVP STA (08:52)
--- NOTE | 2025-05-06 10:05 | US ---
EXAMINATION TYPE: US kidneys/renal and bladder DATE OF EXAM: 05/06/2025 COMPARISON: 05/05/2025 CLINICAL INDICATION: Female, 34 years old with history of worsening pain; saw OB doc yesterday, jayesh l urine, was told normal pains, came in [facility] last and had renal US at that time - negative TECHNIQUE: Grayscale imaging of the bilateral kidneys and urinary bladder: FINDINGS: EXAM MEASUREMENTS: Right Kidney: 10.3 x 5.6 x 6.1 cm Left Kidney: 11.6 x 5.3 x 7.0 cm The size discrepancy indicated previously is not appreciated currently. Likely due to lithograph operator dep endent caliber positioning. Right Kidney: No hydronephrosis or masses seen Left Kidney: No hydronephrosis or masses seen Bladder: wnl Bilateral Jets seen: right Cras notes: No change in 14 hours since her last renal US in [facility] last night IMPRESSION: No hydronephrosis or other specific abnormality seen. [facility], Workstation: [id number], 05/06/2025 10:03 AM
--- NOTE | 2025-05-06 10:07 | US ---
EXAMINATION TYPE: US OB limited DATE OF EXAM: 05/06/2025 COMPARISON: NONE CLINICAL INDICATION: Female, 34 years old with history of worsening pain; Left sided pain x 2 days, n o cramping, no bleeding, anatomy scan performed at OB office last week TECHNIQUE:: OBTA FINDINGS: GESTATIONAL AGE / DATING Physician Established: (21 weeks/0 days) EDC: 09/16/2025 No growth performed on today?s study per ordering physician SURVEY PLACENTA: Posterior PREVIA: No Previa Ultrasound evidence of abruption? None seen. GLORIA: 13.8 cm Normal Ultrasound evidence of premature rupture of membranes? no CERVICAL LENGTH (transabdominal: norm > 3.0cm): 3.6 cm Ultrasound evidence of cervical incompetence? no HEART RATE: 155 bpm RHYTHM: Normal [place] notes: Scanned LLQ for pain, no abnormality seen IMPRESSION: Normal GLORIA. Posterior placenta without previa. No ultrasound findings to suggest placental abruption. No abnormal cervical shortening. [facility], , 05/06/2025 10:05 AM
[2025-05-06] MEDS ORDERED: NALOXONE 0.4 MG/ML 1 ML VIAL IV PRN (10:52)
[2025-05-06] MEDS: MORPHINE SULFATE 4 MG/ML SYRINGE IVP PRN (13:08)
[2025-05-06] MEDS ORDERED: ONDANSETRON 4 MG/2 ML VIAL IVP PRN (13:18)
[2025-05-06] MEDS: ACETAMINOPHEN TAB 325 MG TAB PO PRN (16:25)
[2025-05-06] MEDS: SODIUM CHLORIDE 0.9% 1,000 ML IV SCH (20:45)
[2025-05-06 23:52] VITALS: TEMP 98.1
[2025-05-07 09:09] VITALS: BP 94/57; PULSE 85; RESP 16
--- NOTE | 2025-05-07 10:30 | P.GSCN ---
History of Present Illness Consult date: 05/07/25 History of present illness: 34 yo female, 21 weeks was admitted to the hospital for possible left ureteral stone. 48 hours ago the patient developed left sided abdominal to groin pain, SHe was seen as an op in L&D =, had an us that was negative, HEr urine apparently didnot show any blood, She presented to the er yesterday with left sided pain into the right groain,, An us again didnot show any hydro but she had hematuria. SHe was admitted for pain control and urological evaluation. THere is no history of stones. Her mother has had stones. She has not had any visual bleeding. She is relatively comfortable at present. This is her first . She has not had any vaginal discharge. Review of Systems All systems: negative - Constitutional Denies fever, Denies weight loss - EENT Eyes: denies blurred vision Ears, nose, mouth and throat: Denies dysphagia - Cardiovascular Denies chest pain, Denies shortness of breath - Respiratory Denies cough, Denies 7 - Gastrointestinal Reports as per HPI - Genitourinary Genitourinary: Denies dysuria, Denies hematuria - Integumentary Denies rash, Denies unusual bruising - Neurological Denies headaches, Denies syncope - Hematologic/Lymphatic Denies easy bleeding, Denies easy bruising Past Medical History Past Medical History: No Reported History Additional Past Medical History / Comment(s): 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 She has completed her Gardasil vaccination series. History of Any Multi-Drug Resistant Organisms: None Reported Additional Past Surgical History / Comment(s): wisdom teeth 2007. Root canal. Past Anesthesia/Blood Transfusion Reactions: No Reported Reaction Past Psychological History: Anxiety Smoking Status: Never smoker Past Alcohol Use History: None Reported Additional Past Alcohol Use History / Comment(s): Quit smoking in 2018. Past Drug Use History: None Reported - Past Family History Mother Additional Family Medical History / Comment(s): Anxiety. Maternal grandfather had CVA and [place]. Maternal grandmother had brain cancer. Father Family Medical History: Hyperlipidemia, Hypertension Additional Family Medical History / Comment(s): Paternal grandfather had diabetes and paternal grandmother had renal failure. Medications and Allergies Home Medications Medication Instructions Recorded Confirmed Type Aspirin [[place] Aspirin EC] 1 tab PO HS 05/05/25 05/06/25 History Vit No.179/Iron/Folic 1 tab PO HS 05/05/25 05/06/25 History [ Tablet] Allergies Allergy/AdvReac Type Severity Reaction Status Date / Time Penicillins Allergy Rash/Hives Verified 05/06/25 11:48 Beef Containing Products AdvReac Unknown Verified 05/06/25 16:31 [Beef] Milk Containing Products AdvReac Unknown Verified 05/06/25 16:31 (Dairy) [Dairy] Surgical - Exam Vital Signs Temp Pulse Resp BP Pulse Ox 98 F 75 18 112/75 100 05/06/25 07:23 05/06/25 07:23 05/06/25 07:23 05/06/25 07:23 05/06/25 07:23 - General well developed, well nourished, no distress - Eyes normal ocular movement, no icteric - ENT no hearing loss, no congestion - Neck no masses, trachea midline - Respiratory normal respiratory effort, clear to auscultation - Abdomen . Abdomen: soft, non tender, no guarding, no rigid, no rebound - Integumentary no rash, no abnormal pigmentation - Neurologic no disoriented, no combative - Psychiatric oriented to time, oriented to person, oriented to place, speech is normal, memory intact Results - Labs 05/06/25 08:02 05/06/25 08:02 Abnormal Lab Results - Last 24 Hours (Table) 05/06/25 05/06/25 05/06/25 Range/Units 07:59 08:02 08:02 WBC 11.79 H (4.50-10.00) 10*3/uL RBC 3.92 L (4.10-5.20) 10*6/uL Hct 35.3 L (37.2-46.3) % Immature Gran # 0.06 H (0.00-0.04) 10*3/uL Neutrophils # 10.15 H (1.80-7.70) 10*3/uL Eosinophils # 0.01 L (0.04-0.35) 10*3/uL Sodium 135 L (137-145) mmol/L BUN 6 L (7-17) mg/dL Creatinine 0.49 L (0.52-1.04) mg/dL Urine Blood Moderate H (Negative) Urine RBC 109 H (0-5) /hpf Calcium Oxalate Crystal Few H (None) /hpf Urine Bacteria Rare H (None) /hpf Urine Mucus Rare H (None) /hpf Diabetes panel 05/06/25 Range/Units 08:02 Sodium 135 L (137-145) mmol/L Potassium 4.0 (3.5-5.1) mmol/L Chloride 106 (98-107) mmol/L Carbon Dioxide 22 (22-30) mmol/L BUN 6 L (7-17) mg/dL Creatinine 0.49 L (0.52-1.04) mg/dL Glucose 99 (74-99) mg/dL Calcium 9.6 (8.4-10.2) mg/dL AST 21 (14-36) U/L ALT 14 (4-34) U/L Alkaline Phosphatase 70 (38-126) U/L Total Protein 6.4 (6.3-8.2) g/dL Albumin 3.7 (3.5-5.0) g/dL Calcium panel 05/06/25 Range/Units 08:02 Calcium 9.6 (8.4-10.2) mg/dL Albumin 3.7 (3.5-5.0) g/dL Pituitary panel 05/06/25 Range/Units 08:02 Sodium 135 L (137-145) mmol/L Potassium 4.0 (3.5-5.1) mmol/L Chloride 106 (98-107) mmol/L Carbon Dioxide 22 (22-30) mmol/L BUN 6 L (7-17) mg/dL Creatinine 0.49 L (0.52-1.04) mg/dL Glucose 99 (74-99) mg/dL Calcium 9.6 (8.4-10.2) mg/dL Adrenal panel 05/06/25 Range/Units 08:02 Sodium 135 L (137-145) mmol/L Potassium 4.0 (3.5-5.1) mmol/L Chloride 106 (98-107) mmol/L Carbon Dioxide 22 (22-30) mmol/L BUN 6 L (7-17) mg/dL Creatinine 0.49 L (0.52-1.04) mg/dL Glucose 99 (74-99) mg/dL Calcium 9.6 (8.4-10.2) mg/dL Total Bilirubin 0.4 (0.2-1.3) mg/dL AST 21 (14-36) U/L ALT 14 (4-34) U/L Alkaline Phosphatase 70 (38-126) U/L Total Protein 6.4 (6.3-8.2) g/dL Albumin 3.7 (3.5-5.0) g/dL - Imaging US - kidney/bladder: report reviewed, image reviewed Assessment and Plan Assessment: Impression. left sided abdominal pain, hematuria, 21 weeks Recommendations: I had a lengthy discussion with the patient about her status and the possibility of a stone. Given that she is comfortable now I donot recommend any further imaging or urological intervention at this point in time. Based on her history it sounds as if the stone has moved distal if indeed this is what it is. Hopefully no urologic intervention will be required. Radiography, anesthetics, surgical procedures have been discussed with this patient. She probably should have some sort of evaluation after she delivers if there are no further problems in the interim.
--- NOTE | 2025-05-07 10:35 | P.OBCN ---
History of Present Illness Consult date: 05/06/26 Reason for consult: other Chief complaint: Left flank and pelvic pain in History of present illness: Ms. Jamil is a 34 year old at 21 weeks and 1 day with BRYNN og 09/16/2025 who was admitted overnight for pain management for left flank/pelvic pain and presumed kidney stone. She did have microscopic hematuria on urinalysis. She has now been seen by urology, who recommends pain management outpatient. She is feeling good movement and has no obstetric concerns. 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 She has completed her Gardasil vaccination series. History of Any Multi-Drug Resistant Organisms: None Reported Additional Past Surgical History / Comment(s): wisdom teeth 2007. Root canal. Past Anesthesia/Blood Transfusion Reactions: No Reported Reaction Past Psychological History: Anxiety Smoking Status: Never smoker Past Alcohol Use History: None Reported Additional Past Alcohol Use History / Comment(s): Quit smoking in 2017. Past Drug Use History: None Reported - Past Family History Mother Additional Family Medical History / Comment(s): Anxiety. Maternal grandfather had CVA and [place]. Maternal grandmother had brain cancer. Father Family Medical History: Hyperlipidemia, Hypertension Additional Family Medical History / Comment(s): Paternal grandfather had diabetes and paternal grandmother had renal failure. Medications and Allergies Home Medications Medication Instructions Recorded Confirmed Type Aspirin [[place] Aspirin EC] 1 tab PO HS 05/05/25 05/06/25 History Vit No.179/Iron/Folic 1 tab PO HS 05/05/25 05/06/25 History [ Tablet] Allergies Allergy/AdvReac Type Severity Reaction Status Date / Time Penicillins Allergy Rash/Hives Verified 05/06/25 11:48 Beef Containing Products AdvReac Unknown Verified 05/06/25 16:31 [Beef] Milk Containing Products AdvReac Unknown Verified 05/06/25 16:31 (Dairy) [Dairy] Exam Vital Signs Temp Pulse Pulse Resp BP BP Pulse Ox 05/07/25 08:45 98.1 F 85 16 94/57 99 05/06/25 23:51 98.1 F 87 17 92/49 97 05/06/25 15:51 98.4 F 92 18 97/58 99 05/06/25 13:21 98.1 F 91 18 129/64 100 05/06/25 12:30 98.1 F 91 18 129/64 100 05/06/25 11:54 97.5 F L 88 18 137/73 99 Intake and Output 05/06/25 05/07/25 05/07/25 22:59 06:59 14:59 Other: # Voids 2 1 Focused physical exam is performed. The patient is in no apparent distress. Conversing normally. Some mild tenderness to palpation in left flank and left pelvis. Abdomen is gravid. Extremities non-tender, non-edematous. Results Result Diagrams: 05/06/25 08:02 05/06/25 08:02 Assessment and Plan Assessment: 34 year old at 21 weeks and 1 day with left nephrolithiasis Plan: Patient is stable for discharge home with Tylenol-3s and Flomax. Patient is to follow up with me as scheduled or sooner if needed.
== END 2025-05-07 13:57 | disposition home or self-care (01) ==
LOC: EC 07:10 → 4FBP 10:53
PROVIDERS: ADMIT Family Medicine; ATTEND Family Medicine
DX: O26.832 Pregnancy related renal disease, second trimester (principal); N20.0 Calculus of kidney; O99.343 Other mental disorders complicating pregnancy, third trimester; F41.9 Anxiety disorder, unspecified; Z3A.21 21 weeks gestation of pregnancy; Z79.82 Long term (current) use of aspirin; Z88.0 Allergy status to penicillin
CPT/HCPCS: 96376; 96375 ×2; 96365; 99285; 36415; 80053; 85025; 81001; 76815; 76770; G0378 ×2; J2270 ×2; J2765; J0131